=== PATIENT | male | born 1975 | race Caucasian/White ===

== ENCOUNTER 2017-05-12 09:02 | Emergency (ER) | payer BC ==
[2017-05-12] MEDS ORDERED: Pepcid 20 MG VIAL IV ONE ×2 (09:17→09:23)
[2017-05-12] MEDS ORDERED: BABY ASPIRIN 81 MG CHEW PO ONE (09:17)
[2017-05-12] MEDS ORDERED: BABY ASPIRIN 81 MG CHEW ONE (09:22)
--- NOTE | 2017-05-12 09:24 | ERPHSYRPT ---
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 He drank a few alcohol beverages yesterday. He was up early this AM around 2:[address] Around 3AM he started having chest pain, burning sensation in his heart. The burning then went to the left arm and left elbow. He stopped and took 2 baby asa. He then took omeproazole. He had mild shortness of breath. He uses prn proair for asthma. Used it over the weekend. No cough or fever. No injury. No hx of thromboembolic disease or heart disease. He was worried about his heart so stopped in this ER. Timing/Duration: today (3AM) Quality: burning Location: central Chest Pain Radiation: arm (left) Severity of Pain-Max: moderate Severity of Pain-Current: mild (almost gone) Prior Chest Pain/Cardiac Workup: no prior chest pain Nitro Today/Relief: no nitro taken today Aspirin Treatment Today: 81 mg x 2, provided at home Allergies/Adverse Reactions: No Known Drug Allergies Allergy (Unverified 05/12/17 09:03) Home Medications: Omeprazole [Prilosec] 20 mg DAILY 05/12/17 [History] Hx Influenza Vaccination/Date Given: No Hx Pneumococcal Vaccination/Date Given: No Immunizations Up to Date: Yes - Review of Systems Constitutional: No Fever, No Chills Eyes: No Symptoms Ears, Nose, & Throat: No Symptoms Respiratory: Dyspnea (mild), No Cough Cardiac: Chest Pain (burning sensation) Abdominal/Gastrointestinal: No Abdominal Pain, No Nausea, No Vomiting Musculoskeletal: No Back Pain Skin: No Rash Neurological: No Focal Weakness, No Headache, No Parasthesia All Other Systems: Reviewed and Negative - Past Medical History Pertinent Past Medical History: Yes Respiratory History: Asthma - Past Surgical History Past Surgical History: Yes Musculoskeletal: Orthopedic Surgery Other Surgical History: knee - Social History Smoking Status: Never smoker Exposure to second hand smoke: No Drug Use: none Patient Lives Alone: No - Nursing Vital Signs Nursing Vital Signs: Initial Vital Signs Temperature 97.5 F 05/12/17 09:05 Pulse Rate 75 05/12/17 09:05 Respiratory Rate 18 05/12/17 09:05 Blood Pressure 146/95 05/12/17 09:05 O2 Sat by Pulse Oximetry 99 05/12/17 09:05 Pain Scale Pain Intensity 0 - Physical Exam General Appearance: alert Eye Exam: PERRL/EOMI Ears, Nose, Throat Exam: normal ENT inspection, moist mucous membranes Neck Exam: normal inspection, non-tender, supple Respiratory Exam: normal breath sounds Cardiovascular Exam: regular rate/rhythm, other (2+ femoral pulses), No murmur, No pulse deficit Gastrointestinal/Abdomen Exam: soft, No tenderness, No distention, No mass, No guarding Back Exam: normal inspection, No CVA tenderness Extremity Exam: normal inspection, normal range of motion Neurologic Exam: alert, oriented x 3, cooperative, senior it project manager II-XII nml as tested, sensation nml, No motor deficits Skin Exam: warm, dry, No rash SpO2 Interpretation: normal SpO2: 99 Oxygen Delivery: Room Air - Course Nursing assessment & vital signs reviewed: Yes EKG Interpreted by Me: RATE (66), Sinus Rhythm, NORMAL AXIS, NORMAL INTERVALS ( QTc 391), NORMAL QRS, NORMAL ST-T - Radiology Exams cxr X-ray Interpretation: Teleradiologist Report, Negative Ordered Tests: Active Orders 24 hr Category Date Time Status Piano Player STAT Care 05/12/17 09:18 Active EKG-ER Only STAT Care 05/12/17 09:17 Active IV Insertion STAT Care 05/12/17 09:17 Active Pulse Oximetry (ED) STAT Care 05/12/17 09:17 Active CHEST 2 VIEWS (PA AND LAT) Stat Exams 05/12/17 09:18 Completed CBC W DIFF Stat Lab 05/12/17 09:33 Completed CMP Stat Lab 05/12/17 09:33 Completed D-DIMER QUANTITATION Stat Lab 05/12/17 09:33 Completed TROPONIN Q3H Lab 05/12/17 09:33 Completed TROPONIN Q3H Lab 05/12/17 12:30 Ordered TROPONIN Q3H Lab 05/12/17 15:30 Ordered TROPONIN Q3H Lab 05/12/17 18:30 Ordered TROPONIN Q3H Lab 05/12/17 21:30 Ordered Medication Summary Discontinued Medications Generic Name Dose Route Start Last Admin Trade Name Katelyn PRN Reason Stop Dose Admin Aspirin 162 mg 05/12/17 09:17 05/12/17 09:24 Baby Aspirin 81 Mg Chew PO 05/12/17 09:18 162 mg STAT ONE Administration Aspirin Confirm 05/12/17 09:22 Baby Aspirin 81 Mg Chew Administered 05/12/17 09:23 Dose 162 mg .ROUTE .STK-MED ONE Famotidine 20 mg 05/12/17 09:17 05/12/17 09:24 Pepcid 20 Mg Vial IV 05/12/17 09:18 20 mg STAT ONE Administration Famotidine Confirm 05/12/17 09:23 Pepcid 20 Mg Vial Administered 05/12/17 09:24 Dose 20 mg IV .STK-MED ONE Lab/Rad Data: Laboratory Result Diagrams 05/12/17 09:33 05/12/17 09:33 Laboratory Results 05/12/17 05/12/17 05/12/17 Range/Units 09:33 09:33 09:33 WBC (4.0-10.5) K/mm3 RBC (4.1-5.6) M/mm3 Hgb (12.5-18.0) gm/dl Hct (42-50) % MCV (78-100) fl MCH (26-32) pg MCHC (32-36) g/dl RDW (11.5-14.0) % Plt Count (150-450) K/mm3 MPV (6-9.5) fl Gran % (36.0-66.0) % Eos # (Auto) (0-0.5) Absolute Lymphs (auto) (1.0-4.6) Absolute Monos (auto) (0.0-1.3) Lymphocytes % (24.0-44.0) % Monocytes % (0.0-12.0) % Eosinophils % (0.00-5.0) % Basophils % (0.0-0.4) % Absolute Granulocytes (1.4-6.9) Basophils # (0-0.4) D-Dimer < 215 L (215-500) ng/mL Sodium 141 (137-145) mmol/L Potassium 4.4 (3.5-5.1) mmol/L Chloride 100 (98-107) mmol/L Carbon Dioxide 30 (22-30) mmol/L Anion Gap 15.4 H (5-15) MEQ/L BUN 17 (9-20) mg/dL Creatinine 0.82 (0.66-1.25) mg/dL Estimated GFR > 60 ML/MIN Glucose 102 (74-106) mg/dL Calcium 10.0 (8.4-10.2) mg/dL Total Bilirubin 0.50 (0.2-1.3) mg/dL AST 39 (17-59) U/L ALT 50 (0-50) U/L Alkaline Phosphatase 50 (38-126) U/L Troponin I < 0.012 (0.000-0.034) ng/mL Serum Total Protein 7.6 (6.3-8.2) g/dL Albumin 4.5 (3.5-5.0) g/dL 05/12/17 Range/Units 09:33 WBC 7.4 (4.0-10.5) K/mm3 RBC 5.50 (4.1-5.6) M/mm3 Hgb 16.8 (12.5-18.0) gm/dl Hct 47.4 (42-50) % MCV 86.2 (78-100) fl MCH 30.5 (26-32) pg MCHC 35.4 (32-36) g/dl RDW 13.1 (11.5-14.0) % Plt Count 190 (150-450) K/mm3 MPV 10.2 H (6-9.5) fl Gran % 63.9 (36.0-66.0) % Eos # (Auto) 0.12 (0-0.5) Absolute Lymphs (auto) 1.99 (1.0-4.6) Absolute Monos (auto) 0.54 (0.0-1.3) Lymphocytes % 26.9 (24.0-44.0) % Monocytes % 7.3 (0.0-12.0) % Eosinophils % 1.6 (0.00-5.0) % Basophils % 0.3 (0.0-0.4) % Absolute Granulocytes 4.74 (1.4-6.9) Basophils # 0.02 (0-0.4) D-Dimer (215-500) ng/mL Sodium (137-145) mmol/L Potassium (3.5-5.1) mmol/L Chloride (98-107) mmol/L Carbon Dioxide (22-30) mmol/L Anion Gap (5-15) MEQ/L BUN (9-20) mg/dL Creatinine (0.66-1.25) mg/dL Estimated GFR ML/MIN Glucose (74-106) mg/dL Calcium (8.4-10.2) mg/dL Total Bilirubin (0.2-1.3) mg/dL AST (17-59) U/L ALT (0-50) U/L Alkaline Phosphatase (38-126) U/L Troponin I (0.000-0.034) ng/mL Serum Total Protein (6.3-8.2) g/dL Albumin (3.5-5.0) g/dL - Progress Progress Note: 05/12/17 11:06 He is pain free. D-dimer, cxr, troponin negative. Discussed chest pain observation, repeat troponin in 3 hours, or release. He understands rationale for repeat troponin testing. He called his . He wants to get back on the road so he decided to be discharged now. Advised he contact his family doctor to arrange further testing to possibly include cardiac stress testing. Also advised he continue daily baby asa and prilosec. Counseled pt/family regarding: lab results, diagnosis, need for follow-up, rad results - Departure Time of Disposition: 11:08 Departure Disposition: Home Clinical Impression: Chest pain Qualifiers: Chest pain type: precordial pain Qualified Code(s): R07.2 - Precordial pain Condition: Stable Critical Care Time: No Referrals: DOCTOR,NO FAMILY [Primary Care Provider] - Instructions: Chest Pain (DC) Additional Instructions: Take aspirin 81mg daily. Take one omeprazole daily. Go to ER for further chest pain or concerns. Follow up with your family doctor as soon as possible.
[2017-05-12 09:37] LABS: BASOPHIL % 0.3 % (0.0-0.4); Basophil (Absolute #) 0.02 (0-0.4); Eosinophil % 1.6 % (0.00-5.0); Eosinophil (Absolute #) 0.12 (0-0.5); Granulocyte Absolute (ANC) 4.74 (1.4-6.9); Granulocytes % 63.9 % (36.0-66.0); Hematocrit 47.4 % (42-50); Hemoglobin 16.8 gm/dl (12.5-18.0); Lymphocyte (Absolute #) 1.99 (1.0-4.6); Lymphocytes % 26.9 % (24.0-44.0); Mean Cell Volume 86.2 fl (78-100); Mean Corpuscular Hemoglobin 30.5 pg (26-32); Mean Corpuscular Hgb Concent. 35.4 g/dl (32-36); Mean Platelet Volume 10.2 fl (6-9.5); Monocyte (Absolute #) 0.54 (0.0-1.3); Monocytes % 7.3 % (0.0-12.0); Platelet Count 190 K/mm3 (150-450); Red Cell Distribution Width 13.1 % (11.5-14.0); White Blood Count 7.4 K/mm3 (4.0-10.5)
--- NOTE | 2017-05-12 09:44 | XRAY ---
Indication: Chest pain. No known injury. Comparison: None PA/lateral chest demonstrates normal heart, lungs, and bony thorax.
[2017-05-12 10:00] LABS: ALBUMIN 4.5 g/dL (3.5-5.0); ALKALINE PHOSPHATASE 50 U/L (38-126); ANION GAP 15.4 MEQ/L (5-15); BLOOD UREA NITROGEN 17 mg/dL (9-20); CHLORIDE 100 mmol/L (98-107); Carbon Dioxide 30 mmol/L (22-30); Creatinine 1 0.82 mg/dL (0.66-1.25); Glucose 102 mg/dL (74-106); Potassium 4.4 mmol/L (3.5-5.1); SGOT/AST 39 U/L (17-59); SGPT/ALT 50 U/L (0-50); SODIUM 141 mmol/L (137-145); Total Protein 7.6 g/dL (6.3-8.2)
[2017-05-12 11:22] VITALS: BP 148/69; PULSE 79; O2SAT 97
== END 2017-05-12 11:22 | disposition home or self-care (01) ==
LOC: ED 09:02
DX: R07.9 Chest pain, unspecified (principal); R07.2 Precordial pain
CPT/HCPCS: 36000; 36415; 71046; 80053; 84484; 85025; 85379; 93005; 93041; 99284; A9270-GY